=== PATIENT | female | born 1995 | race Caucasian/White ===

== ENCOUNTER 2018-05-25 12:24 | Emergency (ER) | payer MEDICAID ==
[~2018-05-25 12:24] MED LIST: LEXAPRO 5MG5 MG PO; MOTRIN 800800 MG/TAB PO; PERCOCET 325 MG1 TA2 PO; PRENATAL MVI; PRENTAL 1 PLUS1 TAB PO; TRIAM OI 15 0.025 TOP
[2018-05-25 12:26] VITALS: TEMP 97.8
[2018-05-25 13:03] LABS: COLLECTION METHOD CLEAN CATCH
[2018-05-25 13:22] LABS: MUCOUS Present /lpf; PH 6 (5-8); URINE APPEARANCE Clear; URINE BACTERIA Rare /hpf; URINE BILIRUBIN Negative (NEGATIVE); URINE BLOOD Negative (NEGATIVE); URINE COLOR Yellow; URINE GLUCOSE Negative (NEGATIVE); URINE KETONE Negative (NEGATIVE); URINE LEUKOCYTE ESTERASE Negative (NEGATIVE); URINE NITRATE Negative (NEGATIVE); URINE PROTEIN(semi-quant) Negative (NEGATIVE); URINE RBC None Seen /hpf; URINE UROBILINOGEN Negative (NEGATIVE)
[2018-05-25 16:13] VITALS: BP 105/76; PULSE 89
[2018-05-25] MEDS ORDERED: ZOLOFT 50MG50 MG PO (16:16)
[2018-05-25] MEDS ORDERED: PRENATAL FORMU1 EAC3 PO (16:17)
== END 2018-05-25 16:05 | disposition home or self-care (01) ==
LOC: COL.ER 12:24
PROVIDERS: Emergency Medicine
DX: R51 Headache (principal); F32.9 Major depressive disorder, single episode, unspecified; Z98.890 Other specified postprocedural states

== ENCOUNTER 2018-06-08 12:32 | Outpatient (CLI) | payer MEDICAID ==
[~2018-06-08 12:32] MED LIST changes: +PRENATAL FORMU1 EAC3 PO; +ZOLOFT 50MG50 MG PO
[2018-06-08 12:53] VITALS: BP 113/82; PULSE 99; TEMP 97.7
[2018-06-08 13:00] VITALS: BP 113/78; PULSE 83
== END 2018-06-08 14:15 | disposition home or self-care (01) ==
LOC: LDRO 12:32 → LDR 14:11 → LDRO 14:15
DX: O26.899 Other specified pregnancy related conditions, unspecified trimester (principal); R10.2 Pelvic and perineal pain; Z3A.00 Weeks of gestation of pregnancy not specified
CPT/HCPCS: OP

== ENCOUNTER 2018-06-15 20:51 | Outpatient (CLI) | payer MEDICAID ==
[~2018-06-15] VITALS: Ht 160 cm; Wt 91.4 kg
--- NOTE | 2018-06-15 20:55 | NUR ---
Pt arrives to unit ambulatory with significant other with complaint of decreased movement. at 37 weeks and 6 days and 2 prior c/sections. Pt reports hasn't felt her baby move as much and the last good day was on Tuesday. Pt reports last movement tonight at 1830. EFM and toco explained and applied. Vital signs obtained. Plan of care reviewed. Assessment started. All questions answered.
[2018-06-15 21:15] VITALS: BP 120/80; PULSE 98; TEMP 97.7
--- NOTE | 2018-06-15 21:45 | NUR ---
Pt discharged home at this time. Kick count education provided for patient. Discharge instructions reviewed, pt verbalized understanding. Pt seen ambulating off unit with significant other.
== END 2018-06-15 21:45 | disposition home or self-care (01) ==
LOC: LDRO 20:51
DX: O36.8130 Decreased fetal movements, third trimester, not applicable or unspecified (principal); Z3A.37 37 weeks gestation of pregnancy

== ENCOUNTER 2018-06-23 05:30 | Inpatient (IN) | payer MEDICAID ==
[2018-06-23] VITALS (19 sets, daily range): BP systolic 80–130; BP diastolic 45–91; PULSE 59–106; TEMP 97.4–9703
[~2018-06-23] VITALS: Ht 160 cm; Wt 201.0 kg
--- NOTE | 2018-06-23 05:35 | NUR ---
Pt here for scheduled with FOB and mother. Clean gown on. EFM and TOCO applied. Blood sugar taken, 85. IV started and labs obtained via IV site. LR bolus infusing without difficulties and pepcid administered per orders. Consents signed and vital signs completed. Call light within reach.
[2018-06-23 06:14] LABS: BASO % 0.2 % (0.0-2.0); EOS % 0.5 % (0-4.0); GRAN # 4.5 (1.4-6.5); GRAN % 67.8 % (42.2-75.2); HEMATOCRIT 37.2 % (37.0-47.0); HEMOGLOBIN 12.1 g/dl (12.5-16.0); LYMPH # 1.7 (1.2-3.4); LYMPH % 24.9 % (20.0-51.0); MEAN CELL VOLUME 81 fl (80.0-100.0); MEAN CORPUSCULAR HEMOGLOBIN 26 pg (27.0-31.0); MEAN CORPUSCULAR HGB CONC 33 g/dl (33.0-37.0); MEAN PLATELET VOLUME 12.4 fl (7.4-10.4); MONO # 0.4 (0.1-0.6); MONO % 5.7 % (1.7-9.3); PLATELET COUNT 186 K/mm3 (130-400); RED BLOOD COUNT 4.59 M/mm3 (4.10-5.30); REDCELL DISTRIBUTION WIDTH-CV 13.8 % (11.5-14.5)
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
--- NOTE | 2018-06-23 11:15 | NUR ---
Pt up to see in nursery. Wheelchair assist with RNx2. Back to bathroom. Jain removed. Pericare performed. Pt back to bed. No questions or concerns at this time. Call light within reach.
--- NOTE | 2018-06-23 13:51 | NUR ---
Referral Update: SW went in to see patient about referral concerns. Patient was in room with mother at her bedside. Patient reports that she is residing locally with the FOB-who also resides with his mother part-time. [place] is [place] [address] Contact is . Zachery Ventura is the reported FOB . Patient reports that Dr. Fuentes is her PCP but does see Dr. Smart more often than not for care. Patient reports that she has therapist at [facility] in [facility]. Patient states that she has an active CPS/Reintergrating case due to her older children being removed from the home in 06/2017. Patient reports that she was told that they want to see how well she does with the baby and all three children together before they place older children back in home. Patient reports that she has supervised visits every for two hours. No UA taken on pt, FOB no present at this time.. Due to dynamics of custody placement, lack of support, and reports of FOB stating "it is just another mouth to feed," a cps report will be made. SW will update note with case number,.
[2018-06-24 05:30] VITALS: BP 120/69; PULSE 78; TEMP 97.4
[2018-06-24 16:14] VITALS: BP 124/86; PULSE 78; TEMP 98.1
[2018-06-24 20:40] VITALS: BP 129/89; PULSE 86; TEMP 97.5
[2018-06-25 07:15] VITALS: BP 116/82; PULSE 78; TEMP 98.2
[2018-06-25 16:09] VITALS: BP 117/73; PULSE 86; TEMP 98.3
[2018-06-25 20:00] VITALS: BP 131/88; PULSE 89; TEMP 98.7
--- NOTE | 2018-06-25 22:50 | NUR ---
pt tearful states "I'm scared they won't let me take her home with me tomorrow. why would they let her be in with me if I don't get to take her home? I talked to my case sealer and she said she didn't see any reason why the baby wouldn't go home with me" Had honest discussion with Kaylee about history of her boys being removed from her home and concerns about her being able to care for a baby. reminded her that our most impotant concern is her ability to care for this baby. Explained that DCF/Inspector Line would be in tomorrow to visit with her: they will ask her questions about home situation, other care givers, care supplies, and probably set up a home visit plan with her. I encouraged Kaylee to answer the questions truthfully and to let them know she would do anything they needed her to do so she could take the baby home with her. Kaylee continues tearful throughout discussion. I asked Kaylee several times what she was going to do tomorrow when They came to talk to her and she stated "I'm going to answer their questions and tell them I want to do what I need to to take my baby home with me."
[2018-06-26 07:30] VITALS: BP 127/88; PULSE 78; TEMP 97.6
--- NOTE | 2018-06-26 07:30 | NUR ---
Rests in bed, alert. Request to have baby in room. Assessment done. Ibuprofen 800 mg given as ordered.
--- NOTE | 2018-06-26 08:05 | NUR ---
Patient's infants cord blood was negative for drugs in system.
--- NOTE | 2018-06-26 08:30 | NUR ---
Rests in bed, alert. Denies any needs at this time.
[2018-06-26] MEDS ORDERED: MOTRIN 800800 MG/TAB PO (08:32)
[2018-06-26] MEDS ORDERED: PERCOCET 325 MG1 TA2 PO (08:33)
--- NOTE | 2018-06-26 10:33 | NUR ---
Initial visit attempt; Family resting, Production Consultant left card of congratulations for the of their daughter and information regarding eht availability of spiritual care at [facility].
--- NOTE | 2018-06-26 12:28 | NUR ---
Rests in bed, alert. Lunch here, baby in crib at bedside.
--- NOTE | 2018-06-26 13:30 | NUR ---
Rests in bed with eyes closed. Resperations even and unlabored. Baby at bedside in crib.
--- NOTE | 2018-06-26 15:30 | NUR ---
Rests in bed, alert. Feeds baby bottle. States is getting breast milk and formula.
--- NOTE | 2018-06-26 16:30 | NUR ---
Father of the baby here. Vidios of teaching, safe sleep, and period of purple crying shown to patient and father of the baby.
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
--- NOTE | 2018-06-27 11:20 | NUR ---
bull wheel worker was contacted by Diana with DCF to get additional information on report that was made. Worker shared concerns and requested DCF worker make contact when report is screened in.
== END 2018-06-26 17:20 | disposition home or self-care (01) | DRG 788 ==
LOC: LDR → OB 05:30 → LDR 12:29 → OB 06-26 17:20
PROVIDERS: ADMIT Obstetrics & Gynecology
PROC: 10D00Z1 Extraction of Products of Conception, Low, Open Approach (ICD-10-PCS; principal; 2018-06-23)
DX: O34.211 Maternal care for low transverse scar from previous cesarean delivery (principal); Z3A.39 39 weeks gestation of pregnancy; Z37.0 Single live birth; O24.420 Gestational diabetes mellitus in childbirth, diet controlled; O99.344 Other mental disorders complicating childbirth; F41.8 Other specified anxiety disorders; O99.214 Obesity complicating childbirth
CPT/HCPCS: J0690; J1200; J1885; J2270; J2405; J2590; J7120

== ENCOUNTER 2019-04-17 19:05 | Emergency (ER) | payer MEDICAID ==
[~2019-04-17] VITALS: Ht 162.6 cm; Wt 86.4 kg
[2019-04-17 19:27] VITALS: TEMP 98
[2019-04-17] MEDS ORDERED: NORCO 325 MG-51 TAB PO (21:58)
[2019-04-17 22:50] VITALS: BP 129/88; PULSE 84
== END 2019-04-17 22:52 | disposition home or self-care (01) ==
LOC: COL.ER 19:05
DX: S92.321A Displaced fracture of second metatarsal bone, right foot, initial encounter for closed fracture (principal); S92.331A Displaced fracture of third metatarsal bone, right foot, initial encounter for closed fracture; F32.9 Major depressive disorder, single episode, unspecified; W19.XXXA Unspecified fall, initial encounter; Y92.009 Unspecified place in unspecified non-institutional (private) residence as the place of occurrence of the external cause
CPT/HCPCS: Q4045

== ENCOUNTER 2023-10-17 18:09 | Inpatient (IN) | payer MEDICAID ==
[~2023-10-17] VITALS: Ht 160 cm; Wt 98.2 kg
[~2023-10-17 18:09] MED LIST changes: +NORCO 325 MG-51 TAB PO
[2023-10-24] VITALS (19 sets, daily range): BP systolic 83–127; BP diastolic 40–86; PULSE 61–90; TEMP 97.6–98.3
--- NOTE | 2023-10-24 05:10 | NUR ---
PT PRESENTS TO L&D FOR SCHEDULED REPEAT C/S. GOWN ON, PT TO BED AND MONITORS ON. FHR 120'S REACTIVE, NO DECELS. PT STATES SHE HAS HAD UC'S OFF AND ON BUT NOTHING PAINFUL. BABY IS VERY ACTIVE. SURGERY CONSENTS WERE SIGNED. PT ORIENTED TO THE ROOM AND CALL LIGHT. IV STARTED WITH 18 G IN LEFT HAND WITH 2 STICKS. PT TOLERATED IT WELL. ATTEMPTED TO GET BLOOD WITHOUT SUCCESS. IV IS RUNNING WELL. LAB NOTIFIED TO COME AND DRAW LABS.
[2023-10-24] MEDS ORDERED: Meperidine 50 MG/ML 1 ML VIAL IV PRN (05:15)
[2023-10-24] MEDS ORDERED: diphenhydrAMINE 50 MG/ML 1 ML VIAL IV PRN (05:15)
[2023-10-24] MEDS ORDERED: Ondansetron 4 MG/2 ML VIAL IV PRN ×2 (05:15→08:45)
[2023-10-24] MEDS ORDERED: LR 1,000 ML IV SCH ×2 (05:15→05:30)
[2023-10-24 05:57] LABS: BASO % 0.3 % (0.0-2.0); EOS % 0.1 % (0.0-4.0); GRAN # 5.5 K/mm3 (1.4-6.5); GRAN % 71.8 % (42.2-75.2); HEMATOCRIT 37.8 % (37.0-47.0); HEMOGLOBIN 12.8 g/dl (12.5-16.0); LYMPH # 1.7 K/mm3 (1.2-3.4); LYMPH % 22.3 % (20.0-51.0); MEAN CELL VOLUME 83 fl (80.0-100.0); MEAN CORPUSCULAR HEMOGLOBIN 28 pg (27-31); MEAN CORPUSCULAR HGB CONC 34 g/dl (33.0-37.0); MEAN PLATELET VOLUME 12.5 fl (7.4-10.4); MONO # 0.4 K/mm3 (0.1-0.6); MONO % 5.1 % (1.7-9.3); PLATELET COUNT 182 K/mm3 (130-400); RED BLOOD COUNT 4.54 M/mm3 (4.10-5.30); REDCELL DISTRIBUTION WIDTH-CV 13.4 % (11.5-14.5)
[2023-10-24] MEDS ORDERED: Loratadine 10 MG TAB PO PRN (08:30)
[2023-10-24] MEDS ORDERED: Magnes Hydrox (MOM) 80 MG/ML 30 ML CUP PO PRN (08:30)
[2023-10-24] MEDS ORDERED: Measles/Mumps/Rubella Virus Vaccine Live w Diluent 0.5 ML VIAL SQ SCH (08:45)
[2023-10-24] MEDS ORDERED: oxyCODONE/Acetaminophen 5-325 MG TAB PO PRN (08:45)
[2023-10-24] MEDS ORDERED: Naloxone 0.4 MG/ML VIAL IV PRN (08:45)
[2023-10-24] MEDS ORDERED: LR 1,000 ML IV PRN (08:45)
[2023-10-24] MEDS ORDERED: Ibuprofen 800 MG TAB PO SCH (14:30)
[2023-10-24] MEDS ORDERED: Sennosides/Docusate 8.6-50 MG TAB PO SCH (17:00)
[2023-10-24] MEDS ORDERED: traZODone 50 MG TAB PO PRN (21:00)
[2023-10-25] VITALS: BP 117/81; PULSE 70; TEMP 97.9
[2023-10-25 05:07] VITALS: BP 126/85; PULSE 77; TEMP 98.5
--- NOTE | 2023-10-25 07:22 | NUR ---
PT AND CONTINUOUS IMPROVEMENT BLACK BELT NURSE REPORT MOTRIN ADMINISTERED AT 0600.
[2023-10-25 08:37] VITALS: BP 113/62; PULSE 69; TEMP 98
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
--- NOTE | 2023-11-21 13:51 | NUR ---
DOWNTIME NOTE: An Electronic Health Record (EHR) downtime event occurred during this patient's care. For legal medical record information generated during the downtime period, please reference the patient's legal medical record. Paper or scanned documentation has been incorporated into the legal medical record which is maintained in accordance with Health Information Management (HIM) and record retention policies.
== END 2023-10-26 14:45 | disposition home or self-care (01) | DRG 788 ==
LOC: OB 10-24 05:00
PROVIDERS: ADMIT Obstetrics & Gynecology
PROC: 10D00Z1 Extraction of Products of Conception, Low, Open Approach (ICD-10-PCS; principal; 2023-10-24)
DX: O34.211 Maternal care for low transverse scar from previous cesarean delivery (principal); Z3A.39 39 weeks gestation of pregnancy; Z37.0 Single live birth; O99.344 Other mental disorders complicating childbirth; F41.9 Anxiety disorder, unspecified; F32.A Depression, unspecified; O99.214 Obesity complicating childbirth
CPT/HCPCS: J7120